=== PATIENT | male | born 1955 | race Hispanic/Latino ===

== ENCOUNTER 2018-08-12 06:27 | Day surgery (SDC) | payer BC, OTHER ==
[2018-08-12 06:35] VITALS: BMI 22.0
[2018-08-12 06:39] VITALS: PULSE 93; RESP 18; O2SAT 98
--- NOTE | 2018-08-12 06:48 | ED PDOC ---
Arrival/HPI - General Chief Complaint: Chest Pain Time Seen by Provider: 08/12/18 06:37 - History of Present Illness Narrative History of Present Illness (Text): 08/12/18 06:45 pt present to ed c/o of chest pain radiating to jaw and arm , no sob or fever or chills or palpations, currently denies any pain, supplier quality is dr orellana Past Medical History - Provider Review Nursing Documentation Reviewed: Yes Primary Care Provider: Cain Parker MD - Tetanus Immunization Tetanus Immunization: Unknown - Cardiac Hx Cardiac Disorders: Yes Hx Hypertension: Yes - Pulmonary Hx Respiratory Disorders: No - Neurological Hx Neurological Disorder: No - Genitourinary/Gynecological Hx Genitourinary Disorders: Yes Hx Urinary Tract Infection: Yes Other/Comment: urinary retention , self catheterization q 6 hrs ( 2014 ) - Psychiatric Hx Substance Use: No - Anesthesia Hx Anesthesia: No - Suicidal Assessment Feels Threatened In Home Enviroment: No Family/Social History - Physician Review Nursing Documentation Reviewed: Yes Family/Social History: CAD/MD Smoking Status: Never Smoked Hx Alcohol Use: Yes Frequency of alcohol use: Socially Hx Substance Use: No Hx Substance Use Treatment: No Allergies/Home Meds Allergies/Adverse Reactions: Allergies No Known Allergies Allergy (Verified 08/12/18 06:34) Home Medications: Home Meds Medication Instructions Recorded Confirmed Aspirin [Adult Aspirin Regimen] 81 mg PO DAILY 08/12/18 08/12/18 Clopidogrel [Plavix] 1 tab PO DAILY 08/12/18 08/12/18 Lisinopril/Hydrochlorothiazide 1 tab PO DAILY 08/12/18 08/12/18 [Lisinopril-Hctz 20-12.5 mg Tab] Review of Systems - Review of Systems Constitutional: Normal Eyes: Normal ENT: Normal Respiratory: Normal Cardiovascular: Chest Pain Gastrointestinal: Normal Genitourinary Male: Normal Musculoskeletal: Normal Skin: Normal Neurological: Normal Endocrine: Normal Hemo/Lymphatic: Normal Psychiatric: Normal Physical Exam Vital Signs Reviewed: Yes Vital Signs Temp Pulse Resp BP Pulse Ox 08/12/18 06:39 97.9 F 93 H 18 138/88 98 Temperature: Afebrile Blood Pressure: Normal Pulse: Regular Respiratory Rate: Normal Appearance: Positive for: Well-Appearing, Non-Toxic, Comfortable Pain Distress: None Mental Status: Positive for: Alert and Oriented X 3 - Systems Exam Head: Present: Atraumatic, Normocephalic Pupils: Present: PERRL Extroacular Muscles: Present: EOMI Conjunctiva: Present: Normal Mouth: Present: Moist Mucous Membranes Neck: Present: Normal Range of Motion Respiratory/Chest: Present: Clear to Auscultation, Good Air Exchange. No: Respiratory Distress, Accessory Muscle Use Cardiovascular: Present: Regular Rate and Rhythm, Normal S1, S2. No: Murmurs Abdomen: No: Tenderness, Distention, Peritoneal Signs Back: Present: Normal Inspection Upper Extremity: Present: Normal Inspection. No: Cyanosis, Edema Lower Extremity: Present: Normal Inspection. No: Edema Neurological: Present: GCS=15, CN II-XII Intact, Speech Normal Skin: Present: Warm, Dry, Normal Color. No: Rashes Psychiatric: Present: Alert, Oriented x 3, Normal Insight, Normal Concentration Medical Decision Making - RAD Interpretation Radiology Orders: 08/12/18 06:42 CHEST PORTABLE [RAD] Stat - EKG Interpretation EKG Interpretation (Text): 08/12/18 06:47 nsr rate 82 normal ekg Disposition/Present on Arrival - Present on Arrival Any Indicators Present on Arrival: No History of DVT/PE: No History of Uncontrolled Diabetes: No Urinary Catheter: No History of Decub. Ulcer: No History Surgical Site Infection Following: None - Disposition Have Diagnosis and Disposition been Completed?: Yes Diagnosis: Chest pain Disposition: HOSPITALIZED Disposition Time: 07:00 Condition: FAIR Discharge Instructions (ExitCare): Chest Pain (ED)
[2018-08-12 06:54] LABS: BASO # 0.06 K/mm3 (0.0-2.0); BASO % 0.7 % (0.0-3.0); EOS # 0.6 (0.0-0.7); EOS % 7.4 % (1.5-5.0); HEMOGLOBIN 16.3 g/dL (14.0-18.0); LYMPH # 2.4 (1.2-3.4); LYMPH % 27.6 % (22.0-35.0); MEAN CELL VOLUME 88.4 fl (80.0-105.0); MEAN CORPUSCULAR HEMOGLOBIN 30.9 pg (25.0-35.0); MEAN CORPUSCULAR HGB CONC 34.9 g/dl (31.0-37.0); MEAN PLATELET VOLUME 8.5 fl (7.0-11.0); MONO # 0.6 (0.1-0.6); MONO % 7.3 % (1.0-6.0); RBC 5.28 10^6/uL (3.5-6.1); RED CELL DISTRIBUTION WIDTH 13.1 % (11.5-14.5); WHITE BLOOD COUNT 8.5 10^3/uL (4.5-11.0)
[2018-08-12 07:02] LABS: ALB/GLOB RATIO 1.4 (1.1-1.8); ALBUMIN 4.5 g/dL (3.0-4.8); ALT/SGPT 34 U/L (7-56); AST/SGOT 30 U/L (17-59); BLOOD UREA NITROGEN 21 mg/dL (7-21); CALCIUM 9.3 mg/dL (8.4-10.5); GFR NON-AFRICAN AMERICAN > 60
[2018-08-12 07:03] LABS: INR 0.98; PARTIAL THROMBOPLASTIN TIME 29.2 Seconds (26.9-38.3); PROTHROMBIN TIME 11.1 SECONDS (9.4-12.5)
[2018-08-12 07:14] LABS: TROPONIN I < 0.01 ng/mL
--- NOTE | 2018-08-12 07:44 | RAD ---
Date of service: 08/12/2018 HISTORY: cp COMPARISON: No prior. FINDINGS: LUNGS: No active pulmonary disease. PLEURA: No significant pleural effusion identified, no pneumothorax apparent. CARDIOVASCULAR: No aortic atherosclerotic calcification present. Normal cardiac size. No pulmonary vascular congestion. OSSEOUS STRUCTURES: No significant abnormalities. VISUALIZED UPPER ABDOMEN: Normal. OTHER FINDINGS: None. IMPRESSION: No active disease.
[2018-08-12] MEDS ORDERED: Lidocaine PF 2% (5 ml) Inj (For Cardiac Arrhy) ONE (08:36)
[2018-08-12] MEDS ORDERED: Iohexol 350mgl/ml 50 ML ONE (08:37)
[2018-08-12] MEDS ORDERED: Nitroglycerin 50mg in D5W 0 MG/0 ML BOTTLE IV ONE (08:37)
[2018-08-12] MEDS ORDERED: Iodixanol 320 MG/ML 100 ML BOTTLE IV ONE (08:37)
[2018-08-12] MEDS ORDERED: Iodixanol 320 MG/ML 200 ML BOTTLE IV ONE (08:37)
[2018-08-12] MEDS ORDERED: Midazolam 2 MG/2 ML VIAL ONE ×2 (08:57→09:01)
[2018-08-12] MEDS ORDERED: Sodium Chloride 0.9% 1,000 ML IV SCH (09:45)
[2018-08-12 12:30] LABS: URINE APPEARANCE CLEAR (CLEAR); URINE BILIRUBIN NEGATIVE (NEGATIVE); URINE BLOOD NEGATIVE (NEGATIVE); URINE COLOR YELLOW (YELLOW); URINE GLUCOSE (UA) NEGATIVE (NEGATIVE); URINE LEUKOCYTE ESTERASE NEGATIVE Leu/uL (NEGATIVE); URINE PROTEIN NEGATIVE mg/dL (<30 mg/dL); URINE UROBILINOGEN 0.2 E.U./dL (<1 E.U./dL)
[2018-08-12 12:32] VITALS: TEMP 97.5
--- NOTE | 2018-08-12 12:48 | CARDCATH ---
PROCEDURE DATE: 08/12/2018 HISTORY: The patient is a 63-year-old male who presents with progressive exertional shortness of breath over the past 2 weeks. His symptoms now occasionally occurs at rest. Because he has high probability for coronary artery disease. He was brought straight up from the ER to the labeling machine operator. The patient's cardiac risk factors include hypertension, as well as a strong family history with a mother with myocardial infarction at the age 50s and a grandfather with myocardial infarction at the age of 70. PROCEDURE: Left heart catheterization with coronary arteriography and left ventriculogram and supra-aortic valvular injection. The right femoral artery was cannulated with a 6-[place] sheath. There were no complications. I performed moderate sedation which included the presence of an independent trained observer that assisted in monitoring the patient's level of consciousness and physiologic status. After administration of Versed and fentanyl, my intra service time was 30 minutes. The findings on catheterization revealed a left ventricle that contracted normally. Estimated ejection fraction of 60%. Supra-aortic valvular injection revealed no aortic insufficiency. His coronary anatomy revealed a left dominant circulation. The RCA revealed no critical lesions. The left main artery was unremarkable. The LAD and diagonal vessels were free of significant disease. The circumflex artery was a dominant vessel revealed mild intimal irregularities without critical lesions. AngioSeal was used to close the femoral artery site. The patient tolerated the procedure well. In summary; The procedure revealed unremarkable coronary arteries with a left dominant circulation. Normal LV function. No aortic insufficiency. Given these findings, the patient's chest pain is not of cardiac origin. He will be referred back to Dr. Parker, for further investigation for noncardiac source of chest pain. Florentino Eid MD
[2018-08-12 14:14] VITALS: BP 112/66
--- NOTE | 2018-08-12 16:50 | CARD ---
APPROVED REPORT Date of service: 08/12/2018 EKG Measurement Heart [id number] NC [id number] <Conclusion> Normal sinus rhythm Normal ECG
== END 2018-08-12 15:09 | disposition home or self-care (01) ==
LOC: ED 06:27 → CATH 07:17 → 2RSO 09:49 → CATH 15:09
PROVIDERS: ATTEND Internal Medicine Cardiovascular Disease
DX: R07.89 Other chest pain (principal); R06.02 Shortness of breath; I10 Essential (primary) hypertension; Z79.82 Long term (current) use of aspirin; Z82.49 Family history of ischemic heart disease and other diseases of the circulatory system
CPT/HCPCS: 71045; 80053; 81003; 82550; 83615; 83735; 84484; 85025; 85610; 85730; 93005; 93458; 99152; C1760; C1769; C2629; J1644; J2250; J3010; Q9966